=== PATIENT | male | born 1955 | race Caucasian/White ===

== ENCOUNTER → 2017-12-16 | Outpatient (CLI) | payer BC | LOC: M EKG 15:20 | DX: M17.12 Unilateral primary osteoarthritis, left knee (principal); Z01.810 Encounter for preprocedural cardiovascular examination | CPT/HCPCS: 93005 ==

== ENCOUNTER → 2020-01-23 | Outpatient (CLI) | payer BC ==
[~2020-01-23] MED LIST: NAPR-885 PO; OMEP1CAP73 PO
--- NOTE | 2020-02-03 07:27 | REP ---
CHEST X-RAY CLINICAL: Chest pain. TECHNIQUE: PA and lateral. COMPARISON: 04/08/2013. FINDINGS: Mediastinum and cardiac silhouette are normal. Lung quevedo are clear. No consolidation, effusion, or pneumothorax. Skeletal structures are intact. IMPRESSION: No acute cardiopulmonary process or focal consolidation. MTDD
== END ==
LOC: M WUC 16:44
PROVIDERS: ATTEND Internal Medicine
DX: R07.9 Chest pain, unspecified (principal)

== ENCOUNTER → 2022-04-15 | Outpatient (CLI) | payer MEDICARE | LOC: M PLAIMG 13:42 | DX: J01.90 Acute sinusitis, unspecified (principal) ==

== ENCOUNTER → 2022-10-23 | Outpatient (REF) | payer MEDICARE | LOC: M LABWUC 12:27 | PROVIDERS: ATTEND Physician Assistant Medical | DX: R97.20 Elevated prostate specific antigen [PSA] (principal) ==

== ENCOUNTER → 2022-10-29 | Outpatient (REF) | payer MEDICARE | LOC: M LABSMT 09:00 | PROVIDERS: ATTEND Urology | DX: R97.20 Elevated prostate specific antigen [PSA] (principal) ==

== ENCOUNTER → 2022-11-07 | Outpatient (CLI) | payer MEDICARE ==
[2022-11-09 15:11] LABS: PSA TOTAL 15.4 ng/mL (0.0-4.0)
== END ==
LOC: M WUC 08:50
PROVIDERS: ATTEND Urology
DX: R97.20 Elevated prostate specific antigen [PSA] (principal)

== ENCOUNTER → 2022-12-24 | Outpatient (REF) | payer MEDICARE ==
[2022-12-24 17:44] LABS: BLOOD UREA NITROGEN 18 MG/DL (9-23); CREATININE FOR GFR 0.87 MG/DL (0.70-1.30); GLOMERULAR FILTRATION RATE > 60.0 (>49)
== END ==
LOC: M LABWUC 16:28
PROVIDERS: ATTEND Internal Medicine Pulmonary Disease
DX: Z01.818 Encounter for other preprocedural examination (principal); R97.20 Elevated prostate specific antigen [PSA]; R31.21 Asymptomatic microscopic hematuria

== ENCOUNTER → 2024-06-14 | Outpatient (REF) | payer MEDICARE ==
[2024-06-14 13:26] LABS: PERCENT SATURATION 31.1 % (19.7-50.0)
[2024-06-14 13:28] LABS: FERRITIN 316.2 NG/ML (10.5-307.3)
== END ==
LOC: M LAB REF 12:24
PROVIDERS: ATTEND Internal Medicine
DX: Z01.818 Encounter for other preprocedural examination (principal); M19.90 Unspecified osteoarthritis, unspecified site; D50.9 Iron deficiency anemia, unspecified

== ENCOUNTER → 2024-07-22 | Outpatient (REF) | payer MEDICARE | LOC: M LAB REF 14:46 | PROVIDERS: ATTEND Internal Medicine | DX: R79.89 Other specified abnormal findings of blood chemistry (principal) ==